=== PATIENT | male | born 1960 | race Asian ===

== ENCOUNTER 2018-01-26 07:12 | Emergency (ER) | payer OTHER ==
[2018-01-26 08:16] LABS: Basophils # (Auto) 0.1 K/mm3 (0.0-0.1); Basophils % (Auto) 0.5 % (0.0-1.8); Eosinophils # (Auto) 0.1 K/mm3 (0.0-0.4); Eosinophils % (Auto) 0.6 % (0.0-4.3); Hematocrit 44.1 % (35.5-45.6); Hemoglobin 14.1 gm/dl (11.8-15.2); Lymphocytes # (Auto) 0.9 K/mm3 (1.2-5.4); Lymphocytes % (Auto) 6.4 % (13.4-35.0); Mean Corpuscular HGB Conc 32 % (32-34); Mean Corpuscular Hemoglobin 27 pg (28-32); Mean Corpuscular Volume 85 fl (84-94); Monocytes # (Auto) 0.9 K/mm3 (0.0-0.8); Monocytes % (Auto) 6.4 % (0.0-7.3); Platelet Count 277 K/mm3 (140-440); Red Blood Count 5.17 M/mm3 (3.65-5.03); Red Cell Distribution Width 13.4 % (13.2-15.2)
[2018-01-26 08:27] LABS: BUN/Creatinine Ratio 19; Blood Urea Nitrogen 17 mg/dL (9-20); Calcium 9.3 mg/dL (8.4-10.2); Hemolysis Index 4
--- NOTE | 2018-01-26 09:19 | XRay Report ---
PA and lateral chest: SOB. There is mild vascular congestion and perivascular edema. No pleural effusion identified. The cardiac contour is within normal limits. No mediastinal or hilar mass. Normal bony structures. No prior exam for comparison. Impression: Findings suspicious for fluid congestive failure.
--- NOTE | 2018-01-26 09:43 | Emergency Department Report ---
HPI - General Chief Complaint: Dyspnea/Respdistress Time Seen by Provider: 01/26/18 09:30 - HPI HPI: 57-year-old after [place] male presents to the emergency department with complaint of a one-day history of some shortness of breath, and a dry hacking cough. The patient says that he quit smoking 2 days ago and this is what happened after he stopped. He does say that there is some history of asthma but he does not have any inhaler or breathing treatments at home. He came in by EMS and received a breathing treatment in route and says that this helped a lot. He denies any chest pain, fever, nausea, vomiting but did have some diaphoresis. No recent travel or sick contacts at home. No recent surgery or immobility. He does not have a primary care physician. He does say that there is some history of a heart attack in the past but he does not have any stents. He found this out about 1 year ago through the [facility] and saw a hoop maker at that time but denies having a regular hoop maker or PCP. ED Past Medical Hx - Past Medical History Previous Medical History?: Yes Hx Hypertension: Yes (not taking medication) Hx Heart Attack/AMI: Yes (2017) Hx Asthma: Yes Additional medical history: heart murmur - Surgical History Past Surgical History?: Yes Hx Appendectomy: Yes Additional Surgical History: heart cath 2017 - Social History Smoking Status: Former Smoker Substance Use Type: Alcohol - Medications Home Medications: Home Medications Medication Instructions Recorded Confirmed Last Taken Type ALBUTEROL Inhaler [ProAir HFA 2 puff IH QID PRN #1 inhalation 01/26/18 Unknown Rx Inhaler] Furosemide [Lasix] 20 mg PO QDAY #5 tablet 01/26/18 Unknown Rx ED Review of Systems ROS: Stated complaint: EMMETT Other details as noted in HPI Comment: All other systems reviewed and negative Constitutional: diaphoresis. denies: chills, fever Eyes: denies: eye pain, eye discharge, vision change ENT: denies: ear pain, throat pain Respiratory: cough, wheezing. denies: shortness of breath Cardiovascular: denies: chest pain, palpitations Gastrointestinal: denies: abdominal pain, nausea, diarrhea Genitourinary: denies: urgency, dysuria Musculoskeletal: denies: back pain, joint swelling, arthralgia Skin: denies: rash, lesions Neurological: denies: headache, weakness, paresthesias Physical Exam - Physical Exam Vital Signs: Vital Signs 01/26/18 01/26/18 07:20 09:31 Temperature 98.1 F Pulse Rate 92 H 91 H Respiratory 18 18 Rate Blood Pressure 166/79 Blood Pressure 173/86 [Right] O2 Sat by Pulse 98 98 Oximetry Physical Exam: GENERAL: The patient is well-developed well-nourished. HENT: Normocephalic. Atraumatic. Patient has moist mucous membranes. EYES: Extraocular motions are intact. Pupils equal reactive to light bilaterally. NECK: Supple. Trachea is midline. CHEST/LUNGS: Coarse breath sounds at the chest. There is some tachypnea but no accessory muscle use. There is no respiratory distress noted. HEART/CARDIOVASCULAR: Regular. There is no tachycardia. There is no murmur. ABDOMEN: Abdomen is soft, nontender. Patient has normal bowel sounds. There is no abdominal distention. SKIN: Skin is warm and dry. NEURO: The patient is awake, alert, and oriented. The patient is cooperative. The patient has no focal neurologic deficits. The patient has normal speech. MUSCULOSKELETAL: There is no tenderness or deformity. There is no limitation range of motion. There is no evidence of acute injury. ED Course Vital Signs 01/26/18 01/26/18 07:20 09:31 Temperature 98.1 F Pulse Rate 92 H 91 H Respiratory 18 18 Rate Blood Pressure 166/79 Blood Pressure 173/86 [Right] O2 Sat by Pulse 98 98 Oximetry ED Medical Decision Making - Lab Data Result diagrams: 01/26/18 08:08 01/26/18 08:03 - EKG Data -: EKG Interpreted by Me EKG shows normal: sinus rhythm, axis, intervals (prolonged QTC), QRS complexes ( left bundle branch block), ST-T waves (there is some early repolarization secondary to left bundle) Rate: normal - EKG Data When compared to previous EKG there are: previous EKG unavailable Interpretation: other (sinus rhythm, left bundle-branch block, prolonged QTC) - Radiology Data Radiology results: report reviewed, image reviewed interpreted by me: Chest x-ray shows some mild cardiomegaly and some pulmonary vascular congestion. There may be some mild basilar pleural effusions. CTA of the chest: SOB, elevated d-dimer. Following injection of intravenous contrast transverse images were obtained through the chest. Coronal and sagittal 2-D reformatted images are included as well as 3-D MIP images. The pulmonary vessels, cardiac chambers, and thoracic aorta are well-opacified. There no filling defects in the pulmonary vessels nor cardiac chambers. The ascending aorta measures 4.1 cm which is borderline enlarged. The aortic arch and descending aorta are normal in size. There are several shotty mediastinal and hilar lymph nodes. The central airways are patent. On the lung windows there are some mild linear atelectatic appearing densities at both lung bases. Of additional note however are several sub-pleural nodular densities in the right lower lobe which all appear to measure 5 mm or less in diameter. No calcifications. These are noted on transverse images 75, 87, and 91. There are small bilateral pleural effusions. Impressions: 1. No pulmonary embolus identified. 2. Nonspecific small bilateral effusions. 3. Several small subpleural right lower lobe nodules. These are rather nonspecific in the absence of obvious granulomatous infection. Transcribed By: DEAN Dictated By: YAYA GALEANO MD Electronically Authenticated By: YAYA GALEANO MD Signed Date/Time: 01/26/18 1220 - Medical Decision Making Patient woke up this morning with some shortness of breath and worsened when he was laying flat. He improved greatly after he got a breathing treatment in route. On examination he does have some coarse breath sounds but he does not appear to be in any respiratory distress. Chest x-ray shows some vascular congestion and possibly some basilar mild pleural effusions. His BNP came back at about 1500. His d-dimer was slightly elevated and equivocal so a CT angiography was done and once again showed some mild and/or small pleural effusions. The patient has been resting comfortable throughout his ED course and has been reevaluated multiple times over multiple hours. He may have some level of new onset CHF but may need an echocardiogram to further evaluate his ejection fraction. However he does appear safe for discharge home at this time. I spoke briefly with [facility] cardiology who is agreed to see the patient on Monday outpatient. Patient was given a dose of Lasix here and prescribed a few days of Lasix to be taken at home. All the labs, imaging and plan for outpatient follow-up have been discussed with the patient and he understands and agrees to the plan. - Differential Diagnosis CHF, Asthma, PE, Bronchitis Critical Care Time: No Critical care attestation.: If time is entered above; I have spent that time in minutes in the direct care of this critically ill patient, excluding procedure time. ED Disposition Clinical Impression: Hypertension Qualifiers: Hypertension type: essential hypertension Qualified Code(s): I10 - Essential ( primary) hypertension CHF (congestive heart failure) Qualifiers: Heart failure type: unspecified Heart failure chronicity: acute Qualified Code( s): I50.9 - Heart failure, unspecified Dyspnea Qualifiers: Dyspnea type: shortness of breath Qualified Code(s): R06.02 - Shortness of breath Disposition: DC- TO HOME OR SELFCARE Is pt being admited?: No Condition: Stable Instructions: Heart Failure (ED), Dyspnea (ED), Hypertension (ED) Additional Instructions: Please follow up with one of the [facility] cardiologists on Monday. Call the number today if possible, or Monday, to make an appointment and tell them that you are a follow-up from the emergency department. Try and stay away from foods that are high in salt and caffeinated products to help with your blood pressure. Keep a blood pressure log. Return to the emergency Department with any worsening of your symptoms are any acute distress. Prescriptions: ALBUTEROL Inhaler [ProAir HFA Inhaler] 2 puff IH QID PRN #1 inhalation PRN Reason: Shortness Of Breath Furosemide [Lasix] 20 mg PO QDAY #5 tablet Referrals: PRIMARY CARE, [Primary Care Provider] - 3-5 Days [facility] [Provider Group] - 01/29/18 Time of Disposition: 15:08
[2018-01-26] MEDS ORDERED: TETRACAINE 0.5% OU ONE (11:39)
--- NOTE | 2018-01-26 12:44 | Cat Scan Report ---
CTA of the chest: SOB, elevated d-dimer. Following injection of intravenous contrast transverse images were obtained through the chest. Coronal and sagittal 2-D reformatted images are included as well as 3-D MIP images. The pulmonary vessels, cardiac chambers, and thoracic aorta are well-opacified. There no filling defects in the pulmonary vessels nor cardiac chambers. The ascending aorta measures 4.1 cm which is borderline enlarged. The aortic arch and descending aorta are normal in size. There are several shotty mediastinal and hilar lymph nodes. The central airways are patent. On the lung windows there are some mild linear atelectatic appearing densities at both lung bases. Of additional note however are several sub-pleural nodular densities in the right lower lobe which all appear to measure 5 mm or less in diameter. No calcifications. These are noted on transverse images 75, 87, and 91. There are small bilateral pleural effusions. Impressions: 1. No pulmonary embolus identified. 2. Nonspecific small bilateral effusions. 3. Several small subpleural right lower lobe nodules. These are rather nonspecific in the absence of obvious granulomatous infection.
[2018-01-26] MEDS ORDERED: TETRACAINE 0.5% ONE (12:47)
[2018-01-26] MEDS ORDERED: LASIX PO ONE (13:45)
[2018-01-26] MEDS ORDERED: DUONEB *Not for PRN Use IH ONE (14:21)
[2018-01-26 15:34] VITALS: BP 155/76
== END 2018-01-26 15:47 | disposition home or self-care (01) ==
LOC: ED 07:12
DX: I11.0 Hypertensive heart disease with heart failure (principal); I50.9 Heart failure, unspecified; I25.2 Old myocardial infarction; J45.909 Unspecified asthma, uncomplicated; Z87.891 Personal history of nicotine dependence; Z90.49 Acquired absence of other specified parts of digestive tract
CPT/HCPCS: 36415; 71046; 71275; 80048; 83880; 85025; 85379; 93005; 93010; 94640; 99285; Q9967

== ENCOUNTER 2018-09-23 16:24 | Inpatient (IN) | payer SELFPAY ==
--- NOTE | 2018-09-23 17:00 | Emergency Department Report ---
Blank Doc - Documentation Documentation: This is a 57-year-old male that presents with chest pain with shortness of lacey athe. Also has URI/Flu like symptoms. This initial assessment/diagnostic orders/clinical plan/treatment(s) is/are subject to change based on patient's health status, clinical progression and re-assessment by fellow clinical providers in the ED. Further treatment and workup at subsequent clinical providers discretion. Patient/guardians urged not to elope from the ED as their condition may be serious if not clinically assessed and managed. Initial orders include: 1- Patient sent to MAIN ED for further evaluation and treatment 2- EKG 3- CXR 4- Labs
--- NOTE | 2018-09-23 17:38 | Emergency Department Report ---
HPI - General Chief Complaint: Chest Pain Time Seen by Provider: 09/23/18 16:58 - HPI HPI: Room 23 The patient is a 57-year-old male presenting with chief complaint of chest congestion, shortness of breath and chest pain. The patient states past 3 weeks he has had chest congestion. Patient is to cough productive of yellow sputum. Patient states he has also had intermittent substernal chest pain described as gas/pressure for the past 3 weeks. Patient states his pain is associated with shortness of breath and diaphoresis. Patient denies nausea/vomiting. The patient does admit to orthopnea as well as dyspnea on exertion for the past 3 weeks. Patient denies pleurisy. The patient states she is taking multiple [id number] medications with no improvement Location: [See above] Duration: 3 weeks Quality: Gas/Pressure Severity: Moderate Modifying factors: [see above] Context: [see above] Mode of transportation: [not driving] ED Past Medical Hx - Past Medical History Hx Hypertension: Yes (not taking medication) Hx Heart Attack/AMI: Yes (2017) Hx Asthma: Yes Additional medical history: heart murmur - Surgical History Hx Appendectomy: Yes Additional Surgical History: heart cath 2017 - Family History Family history: no significant - Social History Smoking Status: Current Every Day Smoker (1.5 packs per day) Substance Use Type: None (denies illicit drug use), Alcohol (occasional) - Medications Home Medications: Home Medications Medication Instructions Recorded Confirmed Last Taken Type ALBUTEROL Inhaler (OR & NICU) 2 puff IH QID PRN #1 inhalation 01/26/18 Unknown Rx [ProAir HFA Inhaler] Furosemide [Lasix] 20 mg PO QDAY #5 tablet 01/26/18 Unknown Rx ED Review of Systems ROS: Stated complaint: COLD/FLU SX/ COLD SWEATS/CHEST PAIN Other details as noted in HPI Constitutional: diaphoresis, fever (patient uncertain) Eyes: denies: eye pain ENT: denies: throat pain Respiratory: cough, orthopnea, shortness of breath Cardiovascular: chest pain Endocrine: no symptoms reported Gastrointestinal: denies: nausea, vomiting Genitourinary: denies: dysuria Musculoskeletal: denies: back pain Neurological: denies: headache Physical Exam - Physical Exam Vital Signs: Vital Signs 09/23/18 16:58 Temperature 97.8 F Pulse Rate 92 H Respiratory 20 Rate Blood Pressure 195/85 O2 Sat by Pulse 99 Oximetry Physical Exam: GENERAL: The patient is well-developed well-nourished male lying on stretcher not appearing to be in acute distress. [] HEENT: Normocephalic. Atraumatic. Extraocular motions are intact. Patient has moist mucous membranes. NECK: Supple. Trachea midline CHEST/LUNGS: Clear to auscultation. There is no respiratory distress noted. HEART/CARDIOVASCULAR: Regular. There is no tachycardia. There is no gallop rub or murmur. ABDOMEN: Abdomen is soft, nontender. Patient has normal bowel sounds. There is no abdominal distention. SKIN: There is no rash. There is no edema. There is no diaphoresis. NEURO: The patient is awake, alert, and oriented. The patient is cooperative. The patient has normal speech MUSCULOSKELETAL: There is no evidence of acute injury. ED Course Vital Signs 09/23/18 16:58 Temperature 97.8 F Pulse Rate 92 H Respiratory 20 Rate Blood Pressure 195/85 O2 Sat by Pulse 99 Oximetry ED Medical Decision Making - Lab Data Result diagrams: 09/23/18 17:22 09/23/18 17:22 Laboratory Tests 09/23/18 09/23/18 09/23/18 17:22 17:22 17:22 WBC 11.3 H RBC 4.85 Hgb 13.6 Hct 41.2 MCV 85 MCH 28 MCHC 33 RDW 13.6 Plt Count 354 Lymph % (Auto) 14.0 Warren % (Auto) 6.8 Eos % (Auto) 1.5 Baso % (Auto) 0.9 Lymph # 1.6 Warren # 0.8 Eos # 0.2 Baso # 0.1 Seg Neutrophils % 76.8 H Seg Neutrophils # 8.7 H PT 13.0 INR 0.93 APTT 25.4 Sodium 144 Potassium 4.7 Chloride 102.9 Carbon Dioxide 29 Anion Gap 17 BUN 19 Creatinine 1.2 Estimated GFR > 60 BUN/Creatinine Ratio 16 Glucose 116 H Calcium 10.1 Total Bilirubin 0.30 AST 21 ALT 24 Alkaline Phosphatase 75 Troponin T < 0.010 NT-Pro-B Natriuret Pep Total Protein 7.7 Albumin 4.3 Albumin/Globulin Ratio 1.3 09/23/18 17:22 WBC RBC Hgb Hct MCV MCH MCHC RDW Plt Count Lymph % (Auto) Warren % (Auto) Eos % (Auto) Baso % (Auto) Lymph # Warren # Eos # Baso # Seg Neutrophils % Seg Neutrophils # PT INR APTT Sodium Potassium Chloride Carbon Dioxide Anion Gap BUN Creatinine Estimated GFR BUN/Creatinine Ratio Glucose Calcium Total Bilirubin AST ALT Alkaline Phosphatase Troponin T NT-Pro-B Natriuret Pep 650.0 Total Protein Albumin Albumin/Globulin Ratio - EKG Data -: EKG Interpreted by Me EKG shows normal: sinus rhythm Rate: normal - EKG Data When compared to previous EKG there are: no significant change Interpretation: unchanged when compared t (01/26/2018), LVH, other (left bundle branch block,) - Radiology Data Radiology results: pending (CT chest), report reviewed (chest x-ray), image reviewed (chest x-ray) interpreted by me: Chest x-ray-no focal infiltrates, no pneumothorax [facility] [address] [place] [address] XRay Report Signed Patient: GIGI LOUIE MR#: [id number] : 1960 Acct:[id number] Age/Sex: 57 / M ADM Date: 09/23/18 Loc: ED Attending Dr: Octaviano hollis Physician: AMADOR KAPOOR NP Date of Service: 09/23/18 Procedure(s): XR chest routine 2V Accession Number(s): [id number] cc: AMADOR KAPOOR NP Fluoro Time In Minutes: PROCEDURE: XR CHEST ROUTINE 2V TECHNIQUE: Chest 2 views HISTORY: Chest Pain COMPARISONS: No prior studies available for comparison FINDINGS: Cardiac and mediastinal contours are unremarkable. No focal pulmonary infiltrate identified. No pleural fluid collections seen. The pulmonary vasculature is unremarkable. IMPRESSION: Normal 2 view chest. This document is electronically signed by Fabrizio Dooley MD., September 23 2018 06:22:38 PM ET Transcribed By: MARK Dictated By: JENN DOOLEY MD Electronically Authenticated By: Danilo DOOLEY MD Signed Date/Time: 09/23/181824 DD/ 99 TD/TT: 09/23/181712 - Differential Diagnosis pneumonia, ACS, pericarditis, CHF Critical care attestation.: If time is entered above; I have spent that time in minutes in the direct care of this critically ill patient, excluding procedure time. ED Disposition Clinical Impression: Chest pain, Shortness of breath Disposition: OP ADMIT IP TO THIS HOSP Is pt being admited?: Yes Does the pt Need Aspirin: Yes Condition: Fair Instructions: Chest Pain (ED) Referrals: SARA TRIPLETT MD [Primary Care Provider] - 3-5 Days
[2018-09-23 17:39] LABS: Basophils # (Auto) 0.1 K/mm3 (0.0-0.1); Basophils % (Auto) 0.9 % (0.0-1.8); Eosinophils # (Auto) 0.2 K/mm3 (0.0-0.4); Eosinophils % (Auto) 1.5 % (0.0-4.3); Hematocrit 41.2 % (35.5-45.6); Hemoglobin 13.6 gm/dl (11.8-15.2); Lymphocytes # (Auto) 1.6 K/mm3 (1.2-5.4); Mean Corpuscular HGB Conc 33 % (32-34); Mean Corpuscular Volume 85 fl (84-94); Monocytes # (Auto) 0.8 K/mm3 (0.0-0.8); Monocytes % (Auto) 6.8 % (0.0-7.3); Platelet Count 354 K/mm3 (140-440); Red Blood Count 4.85 M/mm3 (3.65-5.03); Red Cell Distribution Width 13.6 % (13.2-15.2)
[2018-09-23] MEDS ORDERED: CATAPRES PO ONE (17:39)
[2018-09-23 17:50] LABS: INR 0.93 (0.87-1.13); Partial Thromboplastin Time 25.4 Sec. (24.2-36.6)
[2018-09-23 17:53] LABS: Alanine Aminotransferase 24 units/L (7-56); Albumin 4.3 g/dL (3.9-5); BUN/Creatinine Ratio 16; Blood Urea Nitrogen 19 mg/dL (9-20); Calcium 10.1 mg/dL (8.4-10.2); Hemolysis Index 11
--- NOTE | 2018-09-23 18:25 | XRay Report ---
PROCEDURE: XR CHEST ROUTINE 2V TECHNIQUE: Chest 2 views HISTORY: Chest Pain COMPARISONS: No prior studies available for comparison FINDINGS: Cardiac and mediastinal contours are unremarkable. No focal pulmonary infiltrate identified. No pleur al fluid collections seen. The pulmonary vasculature is unremarkable. IMPRESSION: Normal 2 view chest. This document is electronically signed by Fabrizio Menjivar MD., September 23 2018 06:22:38 PM ET
[2018-09-23] MEDS ORDERED: ASPIRIN PO ONE (19:27)
[2018-09-23] MEDS ORDERED: SODIUM CHLORIDE FLUSH SYRINGE 10 ML IV PRN ×2 (21:07)
[2018-09-23] MEDS ORDERED: TYLENOL PO PRN (21:07)
[2018-09-23] MEDS ORDERED: NITROSTAT SL PRN (21:07)
[2018-09-23] MEDS ORDERED: ZOFRAN IV PRN (21:07)
[2018-09-23] MEDS: SODIUM CHLORIDE FLUSH SYRINGE 10 ML IV SCH (22:02)
--- NOTE | 2018-09-23 22:19 | History and Physical Report ---
<MARTINEZ TONEY - Last Filed: 09/24/18 01:57> History of Present Illness Date of examination: 09/23/18 Date of admission: 09/23/18 Chief complaint: chest pain History of present illness: Pt is a 57-year-old male with PMHx of CAD, CHF, HTN, hyperlipidemia who presents to the ER with complaint of chest pain, shortness of breath and chest congestion x 3 weeks. Pt reports frequent productive cough with yellow sputum, associated with chest pain, 2 days ago he started to have bilateral ear and jaw pain, chest congestion and headache. Pt also reports an intermittent pressure- like chest pain associated with shortness of breath and profuse diaphoresis. Patient states that the pain is located in the left substernal area, it is worse with cough. Pt denies fever, recent travelling, denies ill-contact, denies nausea/vomiting, pt reports a prior history of CAD for which he sees cardiology outpatient. EKG shows no acute STEMI criteria, Physical exam, revealed a loud systolic murmur, bilateral ear with yellow discharge in tympanic membrane and tenderness, pt is admitted for chest pain and bronchitis and ear infection. Past History Past Medical History: CAD, heart failure, hypertension, hyperlipidemia Past Surgical History: No surgical history Social history: no significant social history Family history: no significant family history Medications and Allergies Allergies Allergy/AdvReac Type Severity Reaction Status Date / Time No Known Allergies Allergy Verified 09/23/18 16:28 Home Medications Medication Instructions Recorded Confirmed Last Taken Type Lisinopril/Hydrochlorothiazide 1 each PO DAILY 09/23/18 09/23/18 09/23/18 History [Zestoretic 10-12.5 mg Tablet] Potassium Chloride [Klor-Con M20] 20 meq PO DAILY 09/23/18 09/23/18 09/23/18 History Active Meds: Active Medications Acetaminophen (Tylenol) 650 mg PO Q4H PRN PRN Reason: Pain MILD(1-3)/Fever >100.5/[place] Aspirin (Ecotrin) 325 mg PO QDAY COUNT INCLUDES [facility] Atorvastatin Calcium (Lipitor) 40 mg PO QHS COUNT INCLUDES THE [facility] Last Admin: 09/23/18 22:11 Dose: 40 mg Documented by: Enoxaparin Sodium (Lovenox) 40 mg SUB-Q QDAY COUNT INCLUDES THE [facility] Levofloxacin/Dextrose (Levaquin 750mg/150ml) 750 mg in 150 mls @ 100 mls/hr IV Q24HR [facility]; Protocol Nitroglycerin (Nitrostat) 0.4 mg SL Q5M PRN PRN Reason: Chest Pain Ondansetron HCl (Zofran) 4 mg IV Q8H PRN PRN Reason: Nausea And Vomiting Oxycodone/Acetaminophen (Percocet 5/325) 1 tab PO Q6H PRN PRN Reason: Pain, Moderate (4-6) Sodium Chloride (Sodium Chloride Flush Syringe 10 Ml) 10 ml IV BID [facility] Last Admin: 09/23/18 22:02 Dose: 10 ml Documented by: Sodium Chloride (Sodium Chloride Flush Syringe 10 Ml) 10 ml IV PRN PRN PRN Reason: LINE FLUSH Review of Systems Ears, nose, mouth and throat: ear pain Cardiovascular: chest pain Respiratory: cough, cough with sputum, shortness of breath, congestion Exam - Constitutional Vitals: Temp Pulse Resp BP Pulse Ox 97.8 F 76 15 172/76 99 09/23/18 16:58 09/23/18 21:32 09/23/18 21:32 09/23/18 21:32 09/23/18 21:32 General appearance: Present: mild distress - EENT Eyes: Present: EOM intact - Neck Neck: Present: supple, normal ROM - Respiratory Respiratory effort: normal Respiratory: right: rales, bilateral: diminished, rhonchi - Cardiovascular Heart Sounds: Present: S1 & S2, systolic murmur - Extremities Extremities: no ischemia Peripheral Pulses: within normal limits - Abdominal General gastrointestinal: Present: deferred Male genitourinary: Present: deferred - Rectal Rectal Exam: deferred - Musculoskeletal Musculoskeletal: strength equal bilaterally - Psychiatric Psychiatric: cooperative - Neurologic Neurologic: moves all extremities Results - Labs CBC & Chem 7: 09/23/18 17:22 09/23/18 17:22 Labs: Laboratory Last Values WBC 11.3 K/mm3 (4.5-11.0) H 09/23/18 17:22 RBC 4.85 M/mm3 (3.65-5.03) 09/23/18 17:22 Hgb 13.6 gm/dl (11.8-15.2) 09/23/18 17:22 Hct 41.2 % (35.5-45.6) 09/23/18 17:22 MCV 85 fl (84-94) 09/23/18 17:22 MCH 28 pg (28-32) 09/23/18 17:22 MCHC 33 % (32-34) 09/23/18 17:22 RDW 13.6 % (13.2-15.2) 09/23/18 17:22 Plt Count 354 K/mm3 (140-440) 09/23/18 17:22 Lymph % (Auto) 14.0 % (13.4-35.0) 09/23/18 17:22 [place] % (Auto) 6.8 % (0.0-7.3) 09/23/18 17:22 Eos % (Auto) 1.5 % (0.0-4.3) 09/23/18 17: Baso % (Auto) 0.9 % (0.0-1.8) 09/23/18 17:22 Lymph # 1.6 K/mm3 (1.2-5.4) 09/23/18 17: [place] # 0.8 K/mm3 (0.0-0.8) 09/23/18 17:22 Eos # 0.2 K/mm3 (0.0-0.4) 09/23/18 17: Baso # 0.1 K/mm3 (0.0-0.1) 09/23/18 17:22 Seg Neutrophils % 76.8 % (40.0-70.0) H 09/23/18 17: Seg Neutrophils # 8.7 K/mm3 (1.8-7.7) H 09/23/18 17:22 PT 13.0 Sec. (12.2-14.9) 09/23/18 17:22 INR 0.93 (0.87-1.13) 09/23/18 17:22 APTT 25.4 Sec. (24.2-36.6) 09/23/18 17:22 Sodium 144 mmol/L (137-145) 09/23/18 17:22 Potassium 4.7 mmol/L (3.6-5.0) 09/23/18 17:22 Chloride 102.9 mmol/L (98-107) 09/23/18 17:22 Carbon Dioxide 29 mmol/L (22-30) 09/23/18 17:22 Anion Gap 17 mmol/L 09/23/18 17:22 BUN 19 mg/dL (9-20) 09/23/18 17:22 Creatinine 1.2 mg/dL (0.8-1.5) 09/23/18 17:22 Estimated GFR > 60 ml/min 09/23/18 17:22 BUN/Creatinine Ratio 16 % 09/23/18 17:22 Glucose 116 mg/dL (75-100) H 09/23/18 17:22 Calcium 10.1 mg/dL (8.4-10.2) 09/23/18 17:22 Total Bilirubin 0.30 mg/dL (0.1-1.2) 09/23/18 17:22 AST 21 units/L (5-40) 09/23/18 17:22 ALT 24 units/L (7-56) 09/23/18 17:22 Alkaline Phosphatase 75 units/L (35-129) 09/23/18 17:22 Troponin T < 0.010 ng/mL (0.00-0.029) 09/23/18 20:11 NT-Pro-B Natriuret Pep 650.0 pg/mL (0-900) 09/23/18 17:22 Total Protein 7.7 g/dL (6.3-8.2) 09/23/18 17:22 Albumin 4.3 g/dL (3.9-5) 09/23/18 17:22 Albumin/Globulin Ratio 1.3 % 09/23/18 17:22 Assessment and Plan Assessment and plan: 1. Chest pain rule out cardiac vrs pleurisy 2. Acute bronchitis 3. Bilateral otitis externa 4. CAD/CHF (EF unknown) 5. Hypertension 6. Hyperlipidemia Plan: Patient is admitted to med telemetry for chest pain Cardiac enzymes every 6 hours time 2 Start Levaquin for bronchitis/urinary infection Stress test in the a.m. Resume home meds Further plan per test result Advance Directives: Yes VTE prophylaxis?: Chemical Plan of care discussed with patient/family: Yes <ELBA LOUIE - Last Filed: 09/24/18 02:55> History of Present Illness Date of admission: 09/23/18 21:07 Medications and Allergies Active Meds: Active Medications Acetaminophen (Tylenol) 650 mg PO Q4H PRN PRN Reason: Pain MILD(1-3)/Fever >100.5/[place] Aspirin (Ecotrin) 325 mg PO QDAY COUNT INCLUDES [facility] Atorvastatin Calcium (Lipitor) 40 mg PO QHS COUNT INCLUDES [facility] Last Admin: 09/23/18 22:11 Dose: 40 mg Documented by: Enoxaparin Sodium (Lovenox) 40 mg SUB-Q QDAY COUNT INCLUDES [facility] Hydrochlorothiazide (Hctz) 12.5 mg PO QDAY COUNT INCLUDES THE [facility] Levofloxacin/Dextrose (Levaquin 750mg/150ml) 750 mg in 150 mls @ 100 mls/hr IV Q24HR [facility]; Protocol Lisinopril (Zestril) 10 mg PO DAILY COUNT INCLUDES THE [facility] Nitroglycerin (Nitrostat) 0.4 mg SL Q5M PRN PRN Reason: Chest Pain Ondansetron HCl (Zofran) 4 mg IV Q8H PRN PRN Reason: Nausea And Vomiting Oxycodone/Acetaminophen (Percocet 5/325) 1 tab PO Q6H PRN PRN Reason: Pain, Moderate (4-6) Last Admin: 09/23/18 23:12 Dose: 1 tab Documented by: Pneumococcal Polyvalent Vaccine (Pneumovax 23) 0.5 ml IM .ONCE ONE Stop: 09/24/18 12:01 Sodium Chloride (Sodium Chloride Flush Syringe 10 Ml) 10 ml IV BID COUNT INCLUDES THE [facility] Last Admin: 09/23/18 22:02 Dose: 10 ml Documented by: Sodium Chloride (Sodium Chloride Flush Syringe 10 Ml) 10 ml IV PRN PRN PRN Reason: LINE FLUSH Exam - Constitutional Vitals: Temp Pulse Resp BP Pulse Ox 97.5 F L 74 14 149/69 97 09/23/18 23:30 09/23/18 23:30 09/23/18 23:30 09/23/18 23:30 09/23/18 23:30 Results - Labs CBC & Chem 7: 09/23/18 17:22 09/23/18 17:22 Labs: Laboratory Last Values WBC 11.3 K/mm3 (4.5-11.0) H 09/23/18 17:22 RBC 4.85 M/mm3 (3.65-5.03) 09/23/18 17:22 Hgb 13.6 gm/dl (11.8-15.2) 09/23/18 17:22 Hct 41.2 % (35.5-45.6) 09/23/18 17:22 MCV 85 fl (84-94) 09/23/18 17: MCH 28 pg (28-32) 09/23/18 17: MCHC 33 % (32-34) 09/23/18 17:22 RDW 13.6 % (13.2-15.2) 09/23/18 17:22 Plt Count 354 K/mm3 (140-440) 09/23/18 17:22 Lymph % (Auto) 14.0 % (13.4-35.0) 09/23/18 17:22 [place] % (Auto) 6.8 % (0.0-7.3) 09/23/18 17: Eos % (Auto) 1.5 % (0.0-4.3) 09/23/18: Baso % (Auto) 0.9 % (0.0-1.8) 09/23/18 17: Lymph # 1.6 K/mm3 (1.2-5.4) 09/23/18: [place] # 0.8 K/mm3 (0.0-0.8) 09/23/18 17: Eos # 0.2 K/mm3 (0.0-0.4) 09/23/18: Baso # 0.1 K/mm3 (0.0-0.1) 09/23/18 17: Seg Neutrophils % 76.8 % (40.0-70.0) H 09/23/18 17: Seg Neutrophils # 8.7 K/mm3 (1.8-7.7) H 09/23/18 17: PT 13.0 Sec. (12.2-14.9) 09/23/18 17: INR 0.93 (0.87-1.13) 09/23/18: APTT 25.4 Sec. (24.2-36.6) 09/23/18 17:22 Sodium 144 mmol/L (137-145) 09/23/18 17:22 Potassium 4.7 mmol/L (3.6-5.0) 09/23/18 17: Chloride 102.9 mmol/L (98-107) 09/23/18 17:22 Carbon Dioxide 29 mmol/L (22-30) 09/23/18 17:22 Anion Gap 17 mmol/L 09/23/18 17:22 BUN 19 mg/dL (9-20) 09/23/18 17:22 Creatinine 1.2 mg/dL (0.8-1.5) 09/23/18 17:22 Estimated GFR > 60 ml/min 09/23/18 17:22 BUN/Creatinine Ratio 16 % 09/23/18 17:22 Glucose 116 mg/dL (75-100) H 09/23/18 17:22 Calcium 10.1 mg/dL (8.4-10.2) 09/23/18 17:22 Total Bilirubin 0.30 mg/dL (0.1-1.2) 09/23/18 17:22 AST 21 units/L (5-40) 09/23/18 17:22 ALT 24 units/L (7-56) 09/23/18 17:22 Alkaline Phosphatase 75 units/L (35-129) 09/23/18 17:22 Troponin T < 0.010 ng/mL (0.00-0.029) 09/23/18 20:11 NT-Pro-B Natriuret Pep 650.0 pg/mL (0-900) 09/23/18 17:22 Total Protein 7.7 g/dL (6.3-8.2) 09/23/18 17:22 Albumin 4.3 g/dL (3.9-5) 09/23/18 17:22 Albumin/Globulin Ratio 1.3 % 09/23/18 17:22 Triglycerides 135 mg/dL (2-149) 09/23/18 22:02 Cholesterol 165 mg/dL (50-199) 09/23/18 22:02 LDL Cholesterol Direct 107 mg/dL (50-130) 09/23/18 22:02 HDL Cholesterol 46 mg/dL (40-59) 09/23/18 22:02 Cholesterol/HDL Ratio 3.58 % 09/23/18 22:02 Assessment and Plan Assessment and plan: 57-year-old man with a history of coronary artery disease, hypertension, ciga rette is here with complaints of cough productive of yellow phlegm 3 weeks. He started having chest pain in his epigastric area only with cough that lasts for a few seconds. He is been having shortness of breath, pain in his left ear and left jaw. Physical exam is benign Agree with starting antibiotic for bronchitis, otitis media. Check cardiac enzymes, consult cardiology, hold stress test, status post cardiac cath in 2017. Patient seen and examined with nurse practitioner
--- NOTE | 2018-09-23 22:24 | Cat Scan Report ---
PROCEDURE: CT ANGIO CHEST TECHNIQUE: Computerized tomographic angiography of the chest was performed during the IV injection o f iodinated nonionic contrast including image processing. The image data was postprocessed using 2-d imensional multiplanar reformatted (MPR) and 3-dimensional (MIP and/or volume rendered) techniques. A utomated exposure control, adjustment of mA and/or kV according to patient size, or iterative reconst ruction dose optimization techniques were utilized. HISTORY: chest pain, shortness of breath COMPARISONS: None . FINDINGS: Pulmonary out flow tract, right and left main pulmonary arteries and the approximal branches: Clear, no filling defects seen to suggest pulmonary embolus. Pericardium: No evidence of pericardial effusion. Thoracic aorta: Atherosclerotic changes are visualized, no evidence of aneurysmal dilatation or diss ection. Coronary arteries: Coronary arteries are unremarkable. Mediastinum and hilar regions: Non specific subcentimeter lymph nodes are visualized. No pathologica lly enlarged lymph nodes or masses are identified. Lung [place]: There is minimal dependent atelectasis. Small bleb visualized right lung base posteriorl y. This measures 7 mm.. Lungs otherwise appear clear. Upper abdomen: No acute or focal abnormality is seen. Other: No acute bone abnormalities are visualized. IMPRESSION: No evidence of pulmonary embolus. Minimal dependent atelectasis. No acute abnormalities are seen. This document is electronically signed by Waylon Alvarez MD., September 23 2018 10:21:24 PM ET
[2018-09-23] MEDS: PERCOCET 5/325 PO PRN (23:12)
[2018-09-24 00:17] LABS: Chol/HDL Ratio 3.58 %
[2018-09-24 03:33] LABS: Creatine Kinase MB 1.8 ng/mL (0.0-4.0)
[2018-09-24 07:43] LABS: Creatine Kinase MB 1.7 ng/mL (0.0-4.0)
[2018-09-24] MEDS: ECOTRIN PO SCH (10:11)
[2018-09-24] MEDS: ZESTRIL PO SCH (10:11)
[2018-09-24] MEDS: LOVENOX SUB-Q SCH (10:11)
[2018-09-24] MEDS: HCTZ PO SCH (10:11)
[2018-09-24] MEDS: LEVAQUIN 750MG/150ML 750 MG/150 ML BAG IV SCH (10:11)
[2018-09-24] MEDS: SODIUM CHLORIDE FLUSH SYRINGE 10 ML IV SCH ×2 (10:37→22:12)
--- NOTE | 2018-09-24 11:23 | Consultation ---
History of Present Illness Consult date: 09/24/18 Requesting physician: MARTINEZ TONEY Consult reason: chest pain History of present illness: The patient presents with a three-week history of cough productive of yellowish sputum and intermittent shortness of breath. He also claims that he was experiencing chest pain with coughing. Yesterday, he noted left jaw and ear pain associated with diaphoresis, prompting presentation to the emergency department. His chest x-ray is unremarkable. He claims that he suffered a heart attack in 2017 and underwent coronary angiography but did not require intervention at [facility]. Past History Past Medical History: acute [place], CAD, hypertension, hyperlipidemia Past Surgical History: appendectomy Social history: other (Occasional alcohol use.). denies: smoking Family history: denies: CAD Medications and Allergies Allergies Allergy/AdvReac Type Severity Reaction Status Date / Time No Known Allergies Allergy Verified 09/23/18 16:28 Home Medications Medication Instructions Recorded Confirmed Last Taken Type Lisinopril/Hydrochlorothiazide 1 each PO DAILY 09/23/18 09/23/18 09/23/18 History [Zestoretic 10-12.5 mg Tablet] Potassium Chloride [Klor-Con M20] 20 meq PO DAILY 09/23/18 09/23/18 09/23/18 History Active Meds: Active Medications Acetaminophen (Tylenol) 650 mg PO Q4H PRN PRN Reason: Pain MILD(1-3)/Fever >100.5/[place] Aspirin (Ecotrin) 325 mg PO QDAY [facility] Last Admin: 09/24/18 10:11 Dose: 325 mg Documented by: Atorvastatin Calcium (Lipitor) 40 mg PO QHS [facility] Last Admin: 09/23/18 22:11 Dose: 40 mg Documented by: Enoxaparin Sodium (Lovenox) 40 mg SUB-Q QDAY [facility] Last Admin: 09/24/18 10:11 Dose: 40 mg Documented by: Hydrochlorothiazide (Hctz) 12.5 mg PO QDAY [facility] Last Admin: 09/24/18 10:11 Dose: 12.5 mg Documented by: Levofloxacin/Dextrose (Levaquin 750mg/150ml) 750 mg in 150 mls @ 100 mls/hr IV Q24HR [facility]; Protocol Last Admin: 09/24/18 10:11 Dose: 100 mls/hr Documented by: Lisinopril (Zestril) 10 mg PO DAILY [facility] Last Admin: 09/24/18 10:11 Dose: 10 mg Documented by: Nitroglycerin (Nitrostat) 0.4 mg SL Q5M PRN PRN Reason: Chest Pain Ondansetron HCl (Zofran) 4 mg IV Q8H PRN PRN Reason: Nausea And Vomiting Oxycodone/Acetaminophen (Percocet 5/325) 1 tab PO Q6H PRN PRN Reason: Pain, Moderate (4-6) Last Admin: 09/23/18 23:12 Dose: 1 tab Documented by: Pneumococcal Polyvalent Vaccine (Pneumovax 23) 0.5 ml IM .ONCE ONE Stop: 09/24/18 12:01 Sodium Chloride (Sodium Chloride Flush Syringe 10 Ml) 10 ml IV BID [facility] Last Admin: 09/24/18 10:37 Dose: 10 ml Documented by: Sodium Chloride (Sodium Chloride Flush Syringe 10 Ml) 10 ml IV PRN PRN PRN Reason: LINE FLUSH Review of Systems Constitutional: no fever, no chills Ears, nose, mouth and throat: ear pain, no ear discharge, no sore throat Cardiovascular: chest pain Respiratory: cough with sputum, no hemoptysis Gastrointestinal: no abdominal pain, no nausea, no vomiting, no diarrhea, no constipation Genitourinary Male: no dysuria, no urinary frequency Rectal: no pain, no bleeding Musculoskeletal: no neck stiffness, no neck pain, no myalgias Integumentary: no rash, no pruritis Neurological: no weakness, no parathesias, no headaches Endocrine: no cold intolerance, no heat intolerance Hematologic/Lymphatic: no easy bruising, no easy bleeding Allergic/Immunologic: no urticaria, no wheezing Physical Examination Vital Signs Last Vital Signs Temp 97.9 F 09/24/18 07:59 Pulse 66 09/24/18 07:59 Resp 20 09/24/18 07:59 BP 111/34 09/24/18 07:59 Pulse Ox 98 09/24/18 07:59 General appearance: no acute distress HEENT: Positive: EOMI, Normocephaly, Mucus Membranes Moist Neck: Positive: neck supple, trachea midline Cardiac: Positive: Reg Rate and Rhythm, S1/S2 Lungs: Positive: clear to auscultation Neuro: Positive: Grossly Intact Abdomen: Positive: Soft, Active Bowel Sounds. Negative: Tender Skin: Positive: Clear. Negative: Rash Musculoskeletal: Normal Range of Motion Extremities: Present: normal. Absent: edema Results 09/23/18 17:22 09/23/18 17:22 Cardiac Enzymes 09/23/18 09/24/18 09/24/18 Range/Units 17:22 02:57 06:49 AST 21 (5-40) units/L CK-MB (CK-2) 1.8 1.7 (0.0-4.0) ng/mL Coagulation 09/23/18 Range/Units 17:22 PT 13.0 (12.2-14.9) Sec. INR 0.93 (0.87-1.13) APTT 25.4 (24.2-36.6) Sec. Lipids 09/23/18 Range/Units 22:02 Triglycerides 135 (2-149) mg/dL Cholesterol 165 (50-199) mg/dL HDL Cholesterol 46 (40-59) mg/dL Cholesterol/HDL Ratio 3.58 % CBC 09/23/18 Range/Units 17:22 WBC 11.3 H (4.5-11.0) K/mm3 RBC 4.85 (3.65-5.03) M/mm3 Hgb 13.6 (11.8-15.2) gm/dl Hct 41.2 (35.5-45.6) % Plt Count 354 (140-440) K/mm3 Lymph # 1.6 (1.2-5.4) K/mm3 [place] # 0.8 (0.0-0.8) K/mm3 Eos # 0.2 (0.0-0.4) K/mm3 Baso # 0.1 (0.0-0.1) K/mm3 Comprehensive Metabolic Panel 09/23/18 Range/Units 17:22 Sodium 144 (137-145) mmol/L Potassium 4.7 (3.6-5.0) mmol/L Chloride 102.9 (98-107) mmol/L Carbon Dioxide 29 (22-30) mmol/L BUN 19 (9-20) mg/dL Creatinine 1.2 (0.8-1.5) mg/dL Glucose 116 H (75-100) mg/dL Calcium 10.1 (8.4-10.2) mg/dL AST 21 (5-40) units/L ALT 24 (7-56) units/L Alkaline Phosphatase 75 (35-129) units/L Total Protein 7.7 (6.3-8.2) g/dL Albumin 4.3 (3.9-5) g/dL - Imaging and Cardiology EKG: image reviewed EKG interpretations - Telemetry EKG Rhythm: Sinus Rhythm - EKG Sinus rhythms and dysrhythmias: sinus rhythm AV and intraventricular conduction: left bundle branch block Assessment and Plan Initiate anti-ischemic regimen. Obtain previous records from [facility]. Schedule Lexiscan stress test with nuclear imaging. Obtain echocardiogram. - Patient Problems (1) Atypical chest pain Current Visit: Yes Status: Acute (2) Abnormal ECG Current Visit: Yes Status: Chronic (3) Left bundle branch block (LBBB) Current Visit: Yes Status: Chronic (4) Acute bronchitis Current Visit: Yes Status: Acute (5) Hypertension Current Visit: Yes Status: Chronic Qualifiers: Hypertension type: essential hypertension Qualified Code(s): I10 - Essential (primary) hypertension (6) CAD (coronary artery disease) Current Visit: Yes Status: Chronic Qualifiers: Coronary Disease-Associated Artery/Lesion type: [place] artery
[2018-09-24] MEDS ORDERED: LEXISCAN IV ONE (11:33)
[2018-09-24] MEDS ORDERED: PNEUMOVAX 23 IM ONE (12:00)
--- NOTE | 2018-09-24 19:51 | Progress Note ---
Assessment and Plan Assessment and plan: 57-year-old male patient was admitted through emergency room with shortness of breath cough and chest pain, patient underwent a stress test which was abnormal this morning, Cardiology following --Chest pain; rule out acute coronary syndrome Patient underwent stress test which was abnormal Cardiology consultation, continue current cardiac medications --History of coronary artery disease; Continue current cardiac medications, follow echocardiogram Cardiology following --Acute bronchitis; bronchodilators as needed, empiric antibiotics Follow cultures --Hypertension; moderate control, continue current antihypertensives When necessary medications --Dyslipidemia; stable on lipid-lowering medicine. Monitor the patient closely and adjust management as needed Disposition; follow cardiology evaluation and recommendation Possible discharge in 1-2 days if stable History Interval history: Patient seen and examined medical records reviewed Admitted for chest pain acute bronchitis Underwent stress test which was abnormal Cardiology consultation, patient feels slightly better Alert awake oriented 3 Vital signs reviewed Hospitalist Physical - Constitutional Vitals: Temp Pulse Resp BP Pulse Ox 97.9 F 81 20 137/37 100 09/24/18 15:43 09/24/18 15:43 09/24/18 15:43 09/24/18 15:43 09/24/18 19:35 General appearance: Present: no acute distress, well-nourished, obese - EENT Eyes: Present: PERRL, EOM intact - Neck Neck: Present: supple, normal ROM - Respiratory Respiratory effort: normal Respiratory: bilateral: diminished, rhonchi, negative: rales, wheezing - Cardiovascular Rhythm: regular Heart Sounds: Present: S1 & S2 - Extremities Extremities: no ischemia, No edema - Abdominal General gastrointestinal: soft, non-tender, non-distended, normal bowel sounds - Integumentary Integumentary: Present: clear, warm - Psychiatric Psychiatric: appropriate mood/affect, cooperative - Neurologic Neurologic: CNII-XII intact, moves all extremities Results - Labs CBC & Chem 7: 09/23/18 17:22 09/23/18 17:22 Labs: Laboratory Last Values WBC 11.3 K/mm3 (4.5-11.0) H 09/23/18 17:22 RBC 4.85 M/mm3 (3.65-5.03) 09/23/18 17:22 Hgb 13.6 gm/dl (11.8-15.2) 09/23/18 17:22 Hct 41.2 % (35.5-45.6) 09/23/18 17:22 MCV 85 fl (84-94) 09/23/18 17: MCH 28 pg (28-32) 09/23/18 17: MCHC 33 % (32-34) 09/23/18 17:22 RDW 13.6 % (13.2-15.2) 09/23/18 17:22 Plt Count 354 K/mm3 (140-440) 09/23/18 17:22 Lymph % (Auto) 14.0 % (13.4-35.0) 09/23/18 17:22 [place] % (Auto) 6.8 % (0.0-7.3) 09/23/18 17: Eos % (Auto) 1.5 % (0.0-4.3) 09/23/18 17: Baso % (Auto) 0.9 % (0.0-1.8) 09/23/18 17: Lymph # 1.6 K/mm3 (1.2-5.4) 09/23/18 17: [place] # 0.8 K/mm3 (0.0-0.8) 09/23/18 17: Eos # 0.2 K/mm3 (0.0-0.4) 09/23/18 17: Baso # 0.1 K/mm3 (0.0-0.1) 09/23/18 17: Seg Neutrophils % 76.8 % (40.0-70.0) H 09/23/18 17: Seg Neutrophils # 8.7 K/mm3 (1.8-7.7) H 09/23/18 17:22 PT 13.0 Sec. (12.2-14.9) 09/23/18 17: INR 0.93 (0.87-1.13) 09/23/18: APTT 25.4 Sec. (24.2-36.6) 09/23/18 17:22 Sodium 144 mmol/L (137-145) 09/23/18 17:22 Potassium 4.7 mmol/L (3.6-5.0) 09/23/18 17:22 Chloride 102.9 mmol/L (98-107) 09/23/18 17:22 Carbon Dioxide 29 mmol/L (22-30) 09/23/18 17:22 Anion Gap 17 mmol/L 09/23/18 17:22 BUN 19 mg/dL (9-20) 09/23/18 17:22 Creatinine 1.2 mg/dL (0.8-1.5) 09/23/18 17:22 Estimated GFR > 60 ml/min 09/23/18 17:22 BUN/Creatinine Ratio 16 % 09/23/18 17:22 Glucose 116 mg/dL (75-100) H 09/23/18 17:22 Calcium 10.1 mg/dL (8.4-10.2) 09/23/18 17:22 Total Bilirubin 0.30 mg/dL (0.1-1.2) 09/23/18 17:22 AST 21 units/L (5-40) 09/23/18 17:22 ALT 24 units/L (7-56) 09/23/18 17:22 Alkaline Phosphatase 75 units/L (35-129) 09/23/18 17:22 Total Creatine Kinase 96 units/L (55-170) 09/24/18 06:49 CK-MB (CK-2) 1.7 ng/mL (0.0-4.0) 09/24/18 06:49 CK-MB (CK-2) Rel Index 1.7 (0-4) 09/24/18 06:49 Troponin T < 0.010 ng/mL (0.00-0.029) 09/24/18 13:05 NT-Pro-B Natriuret Pep 650.0 pg/mL (0-900) 09/23/18 17:22 Total Protein 7.7 g/dL (6.3-8.2) 09/23/18 17:22 Albumin 4.3 g/dL (3.9-5) 09/23/18 17:22 Albumin/Globulin Ratio 1.3 % 09/23/18 17:22 Triglycerides 135 mg/dL (2-149) 09/23/18 22:02 Cholesterol 165 mg/dL (50-199) 09/23/18 22:02 LDL Cholesterol Direct 107 mg/dL (50-130) 09/23/18 22:02 HDL Cholesterol 46 mg/dL (40-59) 09/23/18 22:02 Cholesterol/HDL Ratio 3.58 % 09/23/18 22:02
[2018-09-24] MEDS: LOPRESSOR PO SCH (22:10)
[2018-09-24] MEDS: PERCOCET 5/325 PO PRN (22:10)
--- NOTE | 2018-09-25 00:06 | Treadmill Report ---
LEXISCAN STRESS TEST REASON FOR STUDY: Chest pain. STRESS TEST PROTOCOL: The patient received 0.4 mg of Lexiscan intravenously over 10 seconds. Technetium-99m tetrofosmin was subsequently injected. Baseline EKG, normal sinus rhythm with left bundle branch block, septal myocardial infarction of undetermined age. Lexiscan EKG, no significant change from baseline. No chest pain. No arrhythmias. IMPRESSION: Nondiagnostic due to baseline ECG abnormalities. Nuclear imaging report to follow. JOB# [id number] AGO/NTS
[2018-09-25 06:00] LABS: Basophils # (Auto) 0.1 K/mm3 (0.0-0.1); Basophils % (Auto) 0.7 % (0.0-1.8); Eosinophils # (Auto) 0.1 K/mm3 (0.0-0.4); Eosinophils % (Auto) 1.2 % (0.0-4.3); Hematocrit 40.5 % (35.5-45.6); Hemoglobin 12.9 gm/dl (11.8-15.2); Lymphocytes # (Auto) 1.1 K/mm3 (1.2-5.4); Lymphocytes % (Auto) 8.7 % (13.4-35.0); Mean Corpuscular HGB Conc 32 % (32-34); Mean Corpuscular Volume 85 fl (84-94); Monocytes # (Auto) 0.6 K/mm3 (0.0-0.8); Monocytes % (Auto) 4.7 % (0.0-7.3); Platelet Count 321 K/mm3 (140-440); Red Blood Count 4.78 M/mm3 (3.65-5.03); Red Cell Distribution Width 13.4 % (13.2-15.2)
[2018-09-25 06:41] LABS: BUN/Creatinine Ratio 17; Blood Urea Nitrogen 19 mg/dL (9-20); Calcium 9.4 mg/dL (8.4-10.2); Hemolysis Index 10
[2018-09-25] MEDS: LOPRESSOR PO SCH ×2 (11:20→21:45)
[2018-09-25] MEDS: LOVENOX SUB-Q SCH (11:21)
[2018-09-25] MEDS: HCTZ PO SCH (11:21)
[2018-09-25] MEDS: LEVAQUIN 750MG/150ML 750 MG/150 ML BAG IV SCH (11:21)
[2018-09-25] MEDS: SODIUM CHLORIDE FLUSH SYRINGE 10 ML IV SCH ×2 (11:22→21:46)
[2018-09-25] MEDS: ECOTRIN PO SCH (11:22)
[2018-09-25] MEDS: ZESTRIL PO SCH (11:22)
--- NOTE | 2018-09-25 11:38 | Progress Note ---
Assessment and Plan S/p lexiscan MPI stress test yesterday which showed minimal to mild ischemia, EF 28%. Cont present cardiac management. F/u echo. If significant CMP is demonstrated on echocardiogram, coronary angiography may be warranted. The patient has been seen in conjunction with Dr. Saez who agrees with the assessment and plan of care. - Patient Problems (1) Atypical chest pain Current Visit: Yes Status: Acute (2) Abnormal ECG Current Visit: Yes Status: Chronic (3) Left bundle branch block (LBBB) Current Visit: Yes Status: Chronic (4) Acute bronchitis Current Visit: Yes Status: Acute (5) Hypertension Current Visit: Yes Status: Chronic Qualifiers: Hypertension type: essential hypertension Qualified Code(s): I10 - Essential (primary) hypertension (6) CAD (coronary artery disease) Current Visit: Yes Status: Chronic Qualifiers: Coronary Disease-Associated Artery/Lesion type: [place] artery Subjective Date of service: 09/25/18 Principal diagnosis: cp, bronchitis Interval history: pt resting in bed, c/o cough. Objective Last Vital Signs Temp 98.2 F 09/25/18 08:16 Pulse 65 09/25/18 08:16 Resp 20 09/25/18 08:16 BP 140/54 09/25/18 08:16 Pulse Ox 96 09/25/18 08:16 - Physical Examination General: No Apparent Distress HEENT: Positive: EOMI, Normocephaly, Mucus Membranes Moist Neck: Positive: neck supple, trachea midline Cardiac: Positive: Reg Rate and Rhythm, S1/S2 Lungs: Positive: Decreased Breath Sounds, Rhonchi Neuro: Positive: Grossly Intact Abdomen: Positive: Soft, Active Bowel Sounds. Negative: Tender Skin: Positive: Clear. Negative: Rash Musculoskeletal: Normal Range of Motion Extremities: Present: normal. Absent: edema - Labs and Meds CBC 09/25/18 Range/Units 04:21 WBC 12.4 H (4.5-11.0) K/mm3 RBC 4.78 (3.65-5.03) M/mm3 Hgb 12.9 (11.8-15.2) gm/dl Hct 40.5 (35.5-45.6) % Plt Count 321 (140-440) K/mm3 Lymph # 1.1 L (1.2-5.4) K/mm3 [place] # 0.6 (0.0-0.8) K/mm3 Eos # 0.1 (0.0-0.4) K/mm3 Baso # 0.1 (0.0-0.1) K/mm3 Comprehensive Metabolic Panel 09/25/18 Range/Units 04:21 Sodium 142 (137-145) mmol/L Potassium 3.8 (3.6-5.0) mmol/L Chloride 100.6 (98-107) mmol/L Carbon Dioxide 25 (22-30) mmol/L BUN 19 (9-20) mg/dL Creatinine 1.1 (0.8-1.5) mg/dL Glucose 146 H (75-100) mg/dL Calcium 9.4 (8.4-10.2) mg/dL - Imaging and Cardiology EKG: image reviewed - EKG Sinus rhythms and dysrhythmias: sinus rhythm AV and intraventricular conduction: left bundle branch block
--- NOTE | 2018-09-25 13:21 | Event Note ---
Date: 09/25/18 Echo reviewed - mild to mod LVH, EF 35-40%, mod , mod to severe AR. Coronary angiography recommended for definitive diagnosis. Indications, potential risks and benefits of LHC reviewed with pt and he is agreeable to proceed in AM. Consents obtained. NPO after MN. Varsha LOPEZ NP / DR. PARRY
--- NOTE | 2018-09-25 14:41 | Progress Note ---
Assessment and Plan Assessment and plan: 57-year-old male patient was admitted through emergency room with shortness of breath cough and chest pain, patient underwent a stress test which was abnormal this morning, Cardiology following --Chest pain; rule out acute coronary syndrome Patient underwent stress test which was abnormal Cardiac cath in am --History of coronary artery disease; Continue current cardiac medications, follow echocardiogram Cardiology following --Acute bronchitis; bronchodilators as needed, empiric antibiotics Follow cultures --Hypertension; moderate control, continue current antihypertensives When necessary medications --Dyslipidemia; stable on lipid-lowering medicine. Monitor the patient closely and adjust management as needed For cardiac cath in am History Interval history: Patient seen and examined medical records reviewed Admitted for chest pain Hospitalist Physical - Physical exam Narrative exam: GEN: Not in acute distress, lying in bed, obese HEENT: Normocephalic, atraumatic, Neck: supple, No JVD Lungs: Clear to auscultation bilat, no crackles, no wheeze Abd:soft, non tender, non distended, normal bowel sounds Ext: No edema, no clubbing, no cyanosis Neuro:Awake,alert,oriented X 3, no focal signs Skin:No rash Psych: normal mood - Constitutional Vitals: Temp Pulse Resp BP Pulse Ox 98.2 F 65 20 140/54 96 09/25/18 08:16 09/25/18 08:16 09/25/18 08:16 09/25/18 08:16 09/25/18 08:16 General appearance: Present: obese Results - Labs CBC & Chem 7: 09/25/18 04:21 09/25/18 04:21 Labs: Laboratory Last Values WBC 12.4 K/mm3 (4.5-11.0) H 09/25/18 04:21 RBC 4.78 M/mm3 (3.65-5.03) 09/25/18 04:21 Hgb 12.9 gm/dl (11.8-15.2) 09/25/18 04:21 Hct 40.5 % (35.5-45.6) 09/25/18 04:21 MCV 85 fl (84-94) 09/25/18 04:21 MCH 27 pg (28-32) L 09/25/18 04:21 MCHC 32 % (32-34) 09/25/18 04:21 RDW 13.4 % (13.2-15.2) 09/25/18 04:21 Plt Count 321 K/mm3 (140-440) 09/25/18 04:21 Lymph % (Auto) 8.7 % (13.4-35.0) L 09/25/18 04:21 [place] % (Auto) 4.7 % (0.0-7.3) 09/25/18 04:21 Eos % (Auto) 1.2 % (0.0-4.3) 09/25/18 04:21 Baso % (Auto) 0.7 % (0.0-1.8) 09/25/18 04:21 Lymph # 1.1 K/mm3 (1.2-5.4) L 09/25/18 04:21 [place] # 0.6 K/mm3 (0.0-0.8) 09/25/18 04:21 Eos # 0.1 K/mm3 (0.0-0.4) 09/25/18 04:21 Baso # 0.1 K/mm3 (0.0-0.1) 09/25/18 04:21 Seg Neutrophils % 84.7 % (40.0-70.0) H 09/25/18 04:21 Seg Neutrophils # 10.5 K/mm3 (1.8-7.7) H 09/25/18 04:21 PT 13.0 Sec. (12.2-14.9) 09/23/18 17:22 INR 0.93 (0.87-1.13) 09/23/18 17:22 APTT 25.4 Sec. (24.2-36.6) 09/23/18 17:22 Sodium 142 mmol/L (137-145) 09/25/18 04:21 Potassium 3.8 mmol/L (3.6-5.0) 09/25/18 04:21 Chloride 100.6 mmol/L (98-107) 09/25/18 04:21 Carbon Dioxide 25 mmol/L (22-30) 09/25/18 04:21 Anion Gap 20 mmol/L 09/25/18 04:21 BUN 19 mg/dL (9-20) 09/25/18 04:21 Creatinine 1.1 mg/dL (0.8-1.5) 09/25/18 04:21 Estimated GFR > 60 ml/min 09/25/18 04:21 BUN/Creatinine Ratio 17 % 09/25/18 04:21 Glucose 146 mg/dL (75-100) H 09/25/18 04:21 Calcium 9.4 mg/dL (8.4-10.2) 09/25/18 04:21 Total Bilirubin 0.30 mg/dL (0.1-1.2) 09/23/18 17:22 AST 21 units/L (5-40) 09/23/18 17:22 ALT 24 units/L (7-56) 09/23/18 17:22 Alkaline Phosphatase 75 units/L (35-129) 09/23/18 17:22 Total Creatine Kinase 96 units/L (55-170) 09/24/18 06:49 CK-MB (CK-2) 1.7 ng/mL (0.0-4.0) 09/24/18 06:49 CK-MB (CK-2) Rel Index 1.7 (0-4) 09/24/18 06:49 Troponin T < 0.010 ng/mL (0.00-0.029) 09/24/18 13:05 NT-Pro-B Natriuret Pep 650.0 pg/mL (0-900) 09/23/18 17:22 Total Protein 7.7 g/dL (6.3-8.2) 09/23/18 17:22 Albumin 4.3 g/dL (3.9-5) 09/23/18 17:22 Albumin/Globulin Ratio 1.3 % 09/23/18 17:22 Triglycerides 135 mg/dL (2-149) 09/23/18 22:02 Cholesterol 165 mg/dL (50-199) 09/23/18 22:02 LDL Cholesterol Direct 107 mg/dL (50-130) 09/23/18 22:02 HDL Cholesterol 46 mg/dL (40-59) 09/23/18 22:02 Cholesterol/HDL Ratio 3.58 % 09/23/18 22:02
[2018-09-25] MEDS ORDERED: NACL 0.9% 500 ML 500 ML IV SCH (15:00)
[2018-09-26 05:46] LABS: Basophils # (Auto) 0.1 K/mm3 (0.0-0.1); Basophils % (Auto) 0.8 % (0.0-1.8); Eosinophils # (Auto) 0.2 K/mm3 (0.0-0.4); Eosinophils % (Auto) 1.8 % (0.0-4.3); Hematocrit 39.7 % (35.5-45.6); Hemoglobin 13.1 gm/dl (11.8-15.2); Lymphocytes # (Auto) 1.9 K/mm3 (1.2-5.4); Lymphocytes % (Auto) 18.8 % (13.4-35.0); Mean Corpuscular HGB Conc 33 % (32-34); Mean Corpuscular Volume 85 fl (84-94); Monocytes # (Auto) 0.8 K/mm3 (0.0-0.8); Monocytes % (Auto) 7.4 % (0.0-7.3); Platelet Count 312 K/mm3 (140-440); Red Cell Distribution Width 13.6 % (13.2-15.2)
[2018-09-26 05:52] LABS: INR 0.98 (0.87-1.13)
[2018-09-26 06:06] LABS: BUN/Creatinine Ratio 16; Blood Urea Nitrogen 19 mg/dL (9-20); Calcium 9.1 mg/dL (8.4-10.2); Hemolysis Index 6
[2018-09-26] MEDS ORDERED: NACL 0.9% 500 ML 500 ML ONE (09:38)
[2018-09-26] MEDS ORDERED: ECOTRIN PO ONE ×2 (09:38→10:00)
[2018-09-26] MEDS: NACL 0.9% 500 ML 500 ML IV SCH ×3 (09:59→11:44)
[2018-09-26] MEDS ORDERED: BABY ASPIRIN PO SCH (10:00)
[2018-09-26] MEDS ORDERED: HEPARIN 10,000 UNITS/10 ML ONE (10:06)
[2018-09-26] MEDS ORDERED: HEPARIN/NS 5000 UNIT/500ML(CATH LAB) 1,000 ML IR ONE (10:06)
[2018-09-26] MEDS ORDERED: VERSED ONE (10:06)
[2018-09-26] MEDS ORDERED: SUBLIMAZE ONE (10:07)
[2018-09-26] MEDS ORDERED: XYLOCAINE 2% INFILTRATI ONE (10:23)
[2018-09-26] MEDS ORDERED: NITROGLYCERIN SYRINGE 3 ML ONE (10:27)
[2018-09-26] MEDS ORDERED: CALAN ONE (10:27)
--- NOTE | 2018-09-26 11:00 | Progress Note ---
Assessment and Plan acute respiratory failure acute systolic heart failure moderate as moderate to severe ai htn chol rec: pt is compensated heart failure and cont lexy and beta richmond and low dose lasix, followup with cardiology in one week Subjective Date of service: 09/26/18 Principal diagnosis: cp, bronchitis Interval history: pt sob is better and able to ly flat Objective Vital Signs Temp Pulse Pulse Resp BP BP Pulse Ox 09/26/18 09:32 98.9 F 68 17 158/75 99 09/26/18 08:18 97.9 F 70 20 125/52 97 09/26/18 04:00 97.9 F 63 19 108/49 98 09/25/18 23:28 98.6 F 64 16 132/54 100 09/25/18 22:20 75 16 96 09/25/18 21:45 75 144/60 09/25/18 19:58 98.3 F 75 16 144/60 96 09/25/18 19:28 71 09/25/18 16:04 97.9 F 65 20 117/41 98 - Physical Examination General: No Apparent Distress HEENT: Positive: EOMI, Normocephaly, Mucus Membranes Moist Neck: Positive: neck supple, trachea midline Cardiac: Positive: Reg Rate and Rhythm, Audible Murmur Lungs: Positive: clear to auscultation Neuro: Positive: Grossly Intact Abdomen: Positive: Soft, Active Bowel Sounds. Negative: Tender Skin: Positive: Clear. Negative: Rash Musculoskeletal: Normal Range of Motion Extremities: Present: normal. Absent: edema - Labs and Meds Coagulation 09/26/18 Range/Units 04:45 PT 13.6 (12.2-14.9) Sec. INR 0.98 (0.87-1.13) CBC 09/26/18 Range/Units 04:45 WBC 10.3 (4.5-11.0) K/mm3 RBC 4.70 (3.65-5.03) M/mm3 Hgb 13.1 (11.8-15.2) gm/dl Hct 39.7 (35.5-45.6) % Plt Count 312 (140-440) K/mm3 Lymph # 1.9 (1.2-5.4) K/mm3 [place] # 0.8 (0.0-0.8) K/mm3 Eos # 0.2 (0.0-0.4) K/mm3 Baso # 0.1 (0.0-0.1) K/mm3 Comprehensive Metabolic Panel 09/26/18 Range/Units 04:45 Sodium 139 (137-145) mmol/L Potassium 4.0 (3.6-5.0) mmol/L Chloride 99.9 (98-107) mmol/L Carbon Dioxide 28 (22-30) mmol/L BUN 19 (9-20) mg/dL Creatinine 1.2 (0.8-1.5) mg/dL Glucose 105 H (75-100) mg/dL Calcium 9.1 (8.4-10.2) mg/dL - Imaging and Cardiology EKG: image reviewed Echo: report reviewed (ef35% moderate to severe ai and moderate as ) Cardiac cath: report reviewed (normal coronaries and ef 35% peak to peak gradient 25 mm hg) - Telemetry EKG Rhythm: Sinus Rhythm - EKG Sinus rhythms and dysrhythmias: sinus rhythm AV and intraventricular conduction: left bundle branch block
[2018-09-26] MEDS: ZESTRIL PO SCH (11:43)
[2018-09-26] MEDS: HCTZ PO SCH (11:44)
[2018-09-26] MEDS: LOPRESSOR PO SCH (11:44)
[2018-09-26] MEDS: LEVAQUIN 750MG/150ML 750 MG/150 ML BAG IV SCH (11:46)
[2018-09-26] MEDS: SODIUM CHLORIDE FLUSH SYRINGE 10 ML IV SCH (11:47)
[2018-09-26] MEDS: LOVENOX SUB-Q SCH (11:48)
--- NOTE | 2018-09-26 12:46 | Cardiac Catherization Report ---
LEFT HEART CATHETERIZATION INDICATIONS: Cardiomyopathy, moderate to severe AI, and moderate aortic stenosis, EF 35%. DESCRIPTION OF PROCEDURE: The patient was given moderate sedation, 1 mg Versed and 50 mcg of fentanyl. Total sedation time 15 minutes, started at 10:30 a.m. and finished at 10:45 a.m. Left heart catheterization performed via the right radial artery, sterile technique, local anesthesia, 6-Cam[place]onian radial sheath inserted. Left system engaged with JL3.5 catheter. Left main large and patent, bifurcates large LAD that is patent proximally wrapped around LAD. Small diagonal 1 and small diagonal 2 are patent. Ramus is a medium caliber vessel that is patent. Circ and AV groove is a large dominant vessel that is patent. OM1 and OM2 are patent. LPDA is small caliber vessel that is patent. RCA engaged with JR4 is a medium caliber vessel nondominant that is patent. LV gram shows moderate LV dysfunction, EF 35% with LVEDP of 26 mmHg, LV is 187/26, aortic is 164/77. There is a 23 mm [id number] gradient across the aortic valve. A 6-Cam[place]onian guiding catheter was taken over guidewire. 6-[place] radial sheath was discontinued. Radial band applied. No hematoma, no bleeding. SUMMARY: Normal coronaries, left dominant system, moderate LV dysfunction with moderate aortic stenosis with [id number] AI on echo. The patient will be treated medically and possible evaluation for aortic valve replacement. JOB# [id number] BERA/CARISSA
[2018-09-26 13:48] VITALS: BP 128/65
--- NOTE | 2018-09-26 15:20 | Discharge Summary ---
Providers - Providers Date of Admission: 09/23/18 21:07 Date of discharge: 09/26/18 Attending physician: ABIEL ANGULO 09/23/18 Consult to Cardiac Rehabilitation [CONS] Routine Reason For Exam: Phase I 09/24/18 02:53 Consult to Physician [CONS] Routine Comment: Consulting Provider: NANCY CASEY Physician Instructions: Reason For Exam: cp 09/26/18 10:57 Consult to Cardiac Rehabilitation [CONS] Routine Reason For Exam: Cardiac Rehab Evaluation [facility] Hospitalization Condition: Fair Hospital course: Patient is 57 yo with history of CAD, CHF, hypertension, hyperlipidemia who presented to the ED with complaint of chest pain, cough, shortness of breath and chest congestion x 3 weeks. Patient denied fever. Physical exam, revealed a loud systolic murmur. He was diagnosed with acute resp failure due to CHF. given aspirin, Lasix and admitted. Echo revealed EF 35-40%, aortic insufficiency. Stress test was done, was abnormal. He was evaluated by cardiology and cardiac cath recommended. Cardiac cath done 09/26/18 revealed normal coronaries. Patient was subsequently discharged home on Aspirin, metoprolol, Lisinopril,statin Total time spent on discharge, 32 mins Disposition: DC-01 TO HOME OR SELFCARE - Discharge Diagnoses (1) Cardiomyopathy Status: Acute (2) Aortic regurgitation Status: Acute (3) Chest pain Status: Acute (4) Hypertension Status: Chronic Qualifiers: Hypertension type: essential hypertension Qualified Code(s): I10 - Essential (primary) hypertension (5) Acute systolic (congestive) heart failure Status: Acute (6) Acute respiratory failure Status: Acute Core Measure Documentation - Palliative Care Palliative Care/ Comfort Measures: Not Applicable - Core Measures Any of the following diagnoses?: heart failure - Heart Failure Discharge Requirements OSMANI/ARB for LVSD if EF <40%: Yes Beta richmond at discharge: Yes Exam - Constitutional Vitals: Temp Pulse Resp BP Pulse Ox 98.9 F 61 18 128/65 99 09/26/18 09:32 09/26/18 13:45 09/26/18 13:00 09/26/18 13:45 09/26/18 09:32 Plan Activity: advance as tolerated Diet: low fat, low cholesterol, low salt Additional Instructions: 1.Follow up with PCP or [facility] in 1 week. 2.Follow up with Dr. Saez in 1 week Follow up with: FLOYD THOMPSONGLEN MD DIANN [Primary Care Provider] - 7 Days Prescriptions: Aspirin EC [Aspirin Enteric Coated TAB] 81 mg PO QDAY #30 tablet. Furosemide [Lasix TAB] 20 mg PO QDAY #30 tablet Metoprolol [Lopressor TAB] 25 mg PO BID #60 tablet Lisinopril [Zestril TAB] 10 mg PO DAILY #30 tablet Simvastatin [Zocor TAB] 40 mg PO QHS #30 tablet
[2018-09-27] MEDS ORDERED: LASIX PO SCH (10:00)
== END 2018-09-26 17:45 | disposition home or self-care (01) | DRG 286 ==
LOC: ED 16:24 → 4A 21:07
PROVIDERS: ADMIT Internal Medicine; ATTEND Internal Medicine
PROC: 3E0234Z Introduction of Serum, Toxoid and Vaccine into Muscle, Percutaneous Approach (ICD-10-PCS; 2018-09-24)
PROC: 4A023N7 Measurement of Cardiac Sampling and Pressure, Left Heart, Percutaneous Approach (ICD-10-PCS; principal; 2018-09-26)
PROC: B2111ZZ Fluoroscopy of Multiple Coronary Arteries using Low Osmolar Contrast (ICD-10-PCS; 2018-09-26)
PROC: B2151ZZ Fluoroscopy of Left Heart using Low Osmolar Contrast (ICD-10-PCS; 2018-09-26)
DX: R07.89 Other chest pain (principal); J96.00 Acute respiratory failure, unspecified whether with hypoxia or hypercapnia; I50.21 Acute systolic (congestive) heart failure; I42.9 Cardiomyopathy, unspecified; I11.0 Hypertensive heart disease with heart failure; I44.7 Left bundle-branch block, unspecified; H60.93 Unspecified otitis externa, bilateral; J20.9 Acute bronchitis, unspecified; I25.2 Old myocardial infarction; I25.9 Chronic ischemic heart disease, unspecified; J45.909 Unspecified asthma, uncomplicated; F17.210 Nicotine dependence, cigarettes, uncomplicated; I25.10 Atherosclerotic heart disease of native coronary artery without angina pectoris; I35.2 Nonrheumatic aortic (valve) stenosis with insufficiency; E78.5 Hyperlipidemia, unspecified; Z82.49 Family history of ischemic heart disease and other diseases of the circulatory system; Z90.49 Acquired absence of other specified parts of digestive tract; Z23 Encounter for immunization
CPT/HCPCS: 36415; 71046; 71275; 78452; 80048; 80053; 80061; 82550; 82553; 82962; 83880; 84484; 85025; 85610; 85730; 90732; 93005; 93010; 93017; 93306; 93458; G0378; A9270-GY; A9502; C1769; C1894; J1644; J1650; J1956; J2250; J2405; J2785; J3010; J7040; Q9967

== ENCOUNTER 2021-07-01 06:33 | Day surgery (SDC) | payer MEDICARE ==
[2021-07-01 07:25] LABS: Basophils # (Auto) 0.1 K/mm3 (0.0-0.1); Basophils % (Auto) 1.2 % (0.0-1.8); Eosinophils # (Auto) 0.2 K/mm3 (0.0-0.4); Eosinophils % (Auto) 1.9 % (0.0-4.3); Hematocrit 40.6 % (35.5-45.6); Hemoglobin 12.7 gm/dl (11.8-15.2); Lymphocytes # (Auto) 1.5 K/mm3 (1.2-5.4); Lymphocytes % (Auto) 17.3 % (13.4-35.0); Mean Corpuscular HGB Conc 31 % (32-34); Mean Corpuscular Volume 83 fl (84-94); Monocytes # (Auto) 0.8 K/mm3 (0.0-0.8); Monocytes % (Auto) 8.9 % (0.0-7.3); Platelet Count 288 K/mm3 (140-440); Red Blood Count 4.87 M/mm3 (3.65-5.03); Red Cell Distribution Width 13.9 % (13.2-15.2)
[2021-07-01] MEDS ORDERED: ASPIRIN EC 325 MG TAB PO SCH (07:30)
[2021-07-01 07:35] LABS: INR 0.96 (0.87-1.13)
[2021-07-01 07:37] LABS: BUN/Creatinine Ratio 23; Blood Urea Nitrogen 27 mg/dL (9-20); Calcium 9.7 mg/dL (8.4-10.2); Hemolysis Index 35
[2021-07-01] MEDS: SODIUM CHLORIDE 0.9% 500 ML 500 ML IV SCH ×2 (07:45→09:03)
[2021-07-01] MEDS ORDERED: HEPARIN/NS 5000 UNIT/500ML 1,000 ML IR ONE (08:05)
[2021-07-01] MEDS ORDERED: VERAPAMIL 5 MG/2 ML INJ ONE (08:06)
[2021-07-01] MEDS ORDERED: fentaNYL 100 MCG/2 ML INJ ONE (08:06)
[2021-07-01] MEDS ORDERED: NITROGLYCERIN SYRINGE 3 ML ONE (08:06)
[2021-07-01] MEDS ORDERED: MIDAZOLAM 2 MG/2 ML INJ ONE (08:06)
[2021-07-01] MEDS ORDERED: HEPARIN 10,000 UNITS/10 ML VIAL ONE (08:06)
[2021-07-01] MEDS: LIDOCAINE (2%) 20 MG/1 ML VIAL 20 ML MDV INFILTRATI ONE ×2 (09:02→09:05)
--- NOTE | 2021-07-01 10:05 | Cardiac Catherization Report ---
DATE OF SERVICE: 07/01/2021 LEFT HEART CATHETERIZATION ORDERING PHYSICIAN: Dr. Saez. CLINICAL INFORMATION: This is a 60-year-old -[place] gentleman with cardiomyopathy with aortic stenosis, severe on echocardiogram, here for left heart cath. The patient was done with moderate sedation, started at 9:00 a.m., finished at 9:20, 20 minutes of moderate sedation. DESCRIPTION OF PROCEDURE: Procedure was done via the right common femoral artery, sterile technique and local anesthesia. A 6-Danish groin sheath inserted. Left system engaged with JL4 catheter. Left main is large and patent, bifurcates into large LAD is patent. Diagonal 1 medium caliber patent. Ramus medium caliber patent. Circumflex medium caliber vessel is patent. OM1, OM2, small to medium caliber and patent. RCA is medium caliber patent. Good JR4. LV gram done in THAI and KEENAN shows mild LV dysfunction, EF 40-45%. LVEDP at 35 mmHg, LV is 213 mmHg. Aortic is 184/76 mmHg. There is a mean gradient 31 mmHg with mild LV dysfunction. SUMMARY: Patent coronaries, mild LV dysfunction with moderate severe aortic stenosis. RECOMMENDATIONS: The patient will be referred for possible TAVR. TID: [id number] RECEIPT: [id number] BEAR/HARPER
--- NOTE | 2021-07-01 10:20 | Short Stay Summary ---
Short Stay Documentation Date of service: 07/01/21 - History H&P: obtained from office - Allergies and Medications Current Medications: Allergies No Known Allergies Allergy (Verified 09/23/18 16:28) Home Medications Medication Instructions Recorded Confirmed Last Taken Type Aspirin EC [Halfprin EC] 81 mg PO QDAY #30 tablet. 09/26/18 07/01/21 06/30/21 Rx 81 mg Lisinopril/Hydrochlorothiazide 1 tab PO DAILY 07/01/21 07/01/21 06/30/21 History [Zestoretic 10-12.5 mg Tablet] 1 tab Metoprolol Xl [Metoprolol 50 mg PO QDAY 07/01/21 07/01/21 06/30/21 History SUCCINATE ER TAB] 50 mg Active Medications Aspirin (Aspirin Ec 325 Mg Tab) 325 mg PO ONCE@0730 DWAINE Stop: 07/01/21 17:00 Last Admin: 07/01/21 07:43 Dose: 325 mg Documented by: Sodium Chloride (Nacl 0.9% 500 Ml) 500 mls @ 50 mls/hr IV DIRECT DWAINE Stop: 07/01/21 17:59 Last Admin: 07/01/21 09:03 Dose: 50 mls/hr Documented by: - Brief post op/procedure progress note Date of procedure: 07/01/21 Pre-op diagnosis: aortic stenosis Post-op diagnosis: same Anesthesia: local Estimated blood loss: minimal - Hospital course Hospital course: Patient underwent cardiac cath with no complications. Patient tolerated procedure well. Patient found to have moderate to severe aortic stenosis. Patient to be referred for possible TAVR - Disposition Condition at discharge: Good Disposition: 01 HOME / SELF CARE / HOMELESS Short Stay Discharge Plan Activity: advance as tolerated Diet: low fat, low cholesterol, low salt Wound: keep clean and dry, per your surgeon's advice Follow up with: PRICILA DE PAZ MD [Primary Care Provider] - 7 Days CHAGO PARRY MD [Staff Physician] - 07/20/21 10:15 am (Patient has a follow-up appointment with Dr. Parry, [facility] recreational specialist, on 07/20/2021 at 10:15 AM at our [place] location. Phone #[phone])
--- NOTE | 2021-07-01 10:39 | Electrocardiograph Report ---
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
[2021-07-01 13:35] VITALS: BP 156/63
== END 2021-07-01 14:00 | disposition home or self-care (01) ==
LOC: CATHLABREC 06:33
PROVIDERS: ATTEND Internal Medicine
DX: R94.39 Abnormal result of other cardiovascular function study (principal); I35.2 Nonrheumatic aortic (valve) stenosis with insufficiency; R07.89 Other chest pain; I11.0 Hypertensive heart disease with heart failure; I50.9 Heart failure, unspecified; I42.8 Other cardiomyopathies; J45.909 Unspecified asthma, uncomplicated; E66.9 Obesity, unspecified; Z79.899 Other long term (current) drug therapy; Z79.82 Long term (current) use of aspirin; Z98.890 Other specified postprocedural states
CPT/HCPCS: 36415; 80048; 85025; 85610; 85730; 93005; 93458; 99156; C1894; J1644; J1815; J2250; J3010; J3490; J7040; Q9967

== ENCOUNTER 2021-09-25 22:14 | Emergency (ER) | payer MEDICARE ==
[2021-09-26 04:49] VITALS: BP 169/93
--- NOTE | 2021-09-26 04:54 | Emergency Department Report ---
ED General Adult HPI - General Chief complaint: High BP Stated complaint: HIGH BLOOD PRESSURE Time Seen by Provider: 09/26/21 03:42 Source: patient Mode of arrival: Ambulatory Limitations: No Limitations - Related Data Home Medications Medication Instructions Recorded Confirmed Last Taken Lisinopril/Hydrochlorothiazide 1 tab PO DAILY 07/01/21 07/01/21 06/30/21 [Zestoretic 10-12.5 mg Tablet] 1 tab Metoprolol Xl [Metoprolol 1.5 tab PO QDAY 07/01/21 07/01/21 06/30/21 SUCCINATE ER TAB] 50 mg Previous Rx's Medication Instructions Recorded Last Taken Type Aspirin EC [Halfprin EC] 81 mg PO QDAY #30 tablet. 09/26/18 06/30/21 Rx 81 mg cloNIDine [Catapres] 0.2 mg PO BID PRN #10 tablet 09/26/21 Unknown Rx Allergies Allergy/AdvReac Type Severity Reaction Status Date / Time No Known Allergies Allergy Verified 09/23/18 16:28 ED Review of Systems ROS: Stated complaint: HIGH BLOOD PRESSURE Other details as noted in HPI ED Past Medical Hx - Past Medical History Previous Medical History?: Yes Hx Hypertension: Yes (not taking medication) Hx Heart Attack/AMI: Yes (2016) Hx Congestive Heart Failure: Yes (EF 35-40%) Hx Diabetes: No Hx Arthritis: Yes Hx Asthma: Yes Hx COPD: No Additional medical history: heart murmur - Surgical History Hx Open Heart Surgery: Yes Hx Appendectomy: Yes Additional Surgical History: heart cath 2016 - Social History Smoking Status: Never Smoker Substance Use Type: None - Medications Home Medications: Home Medications Medication Instructions Recorded Confirmed Last Taken Type Aspirin EC [Halfprin EC] 81 mg PO QDAY #30 tablet. 09/26/18 07/01/21 06/30/21 Rx 81 mg Lisinopril/Hydrochlorothiazide 1 tab PO DAILY 07/01/21 07/01/21 06/30/21 History [Zestoretic 10-12.5 mg Tablet] 1 tab Metoprolol Xl [Metoprolol 1.5 tab PO QDAY 07/01/21 07/01/21 06/30/21 History SUCCINATE ER TAB] 50 mg cloNIDine [Catapres] 0.2 mg PO BID PRN #10 tablet 09/26/21 Unknown Rx ED Physical Exam - General Limitations: No Limitations ED Course Vital Signs 09/25/21 09/26/21 22:18 04:48 Temperature 98.8 F Pulse Rate 75 Respiratory 18 18 Rate Blood Pressure 194/110 Blood Pressure 169/93 [Right] O2 Sat by Pulse 99 Oximetry ED Medical Decision Making - Medical Decision Making 60-year-old male with status post cardiac valve replacement with a porcine valve presents to the emergency department complaining of high blood pressure. Patient is otherwise asymptomatic without confusion, chest pain, hematuria, or SOB. BP today is 194/111 spontaneously did reduce to 169/93 Patient is not currently on valsartan HCTZ which is a change from his head his hydralazine Doubt CV, AMI, heart failure, renal infarction or failure or other end organ damage. Disposition:Discussed with patient their elevated blood pressure and need for close outpatient management of their hypertension. Will provide a prescription for the patients previous antihypertensive medication and arrange for the patient to follow up in a primary care clinic Disposition: Discussed with patient their elevated blood pressure and need for close outpatient management of their hypertension. Will provide a prescription for amlodipine 5mg PO daily and arrange for the patient to follow up in a primary care clinic Critical care attestation.: If time is entered above; I have spent that time in minutes in the direct care of this critically ill patient, excluding procedure time. ED Disposition Clinical Impression: Hypertension Disposition: 01 HOME / SELF CARE / HOMELESS Is pt being admited?: No Does the pt Need Aspirin: No Condition: Stable Instructions: Coronary Artery Disease, Male, Preventing Hypertension, Hypertension, Adult, Hypertension (ED) Prescriptions: cloNIDine [Catapres] 0.2 mg PO BID PRN #10 tablet PRN Reason: Elevated blood pressure Referrals: PRICILA DE PAZ MD [Primary Care Provider] - 3-5 Days
--- NOTE | 2021-09-27 11:00 | Electrocardiograph Report ---
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 Left ventricular hypertrophy now present Early repolarization now present Electronically Signed On 09-27-2021 10:59:10 EDT by Mulugeta Butler
== END 2021-09-26 05:20 | disposition home or self-care (01) ==
LOC: ED 22:14
DX: I10 Essential (primary) hypertension (principal); Z90.89 Acquired absence of other organs; J45.909 Unspecified asthma, uncomplicated
CPT/HCPCS: 93005; 99282